=== PATIENT | male | born 1960 | race Caucasian/White ===

== ENCOUNTER → 2021-05-23 | Outpatient (CLI) | payer BC ==
[~2021-05-23] MED LIST: FLOMAX 0.40.4 MG/CAP PO; PROSCAR 5MG5 MG PO; PYRIDIUM 100MG100 MG PO
== END ==
LOC: COL.RAD 07:13
DX: N13.39 Other hydronephrosis (principal); N32.89 Other specified disorders of bladder

== ENCOUNTER 2021-07-06 05:20 | Day surgery (SDC) | payer BC ==
[2021-07-06] VITALS (11 sets, daily range): BP systolic 128–157; BP diastolic 63–89; PULSE 47–70; TEMP 98.1–98.7
[~2021-07-06] VITALS: Ht 182.9 cm; Wt 105.4 kg
[2021-07-06] MEDS ORDERED: PROSCAR 5MG5 MG PO (06:13)
[2021-07-06] MEDS ORDERED: FLOMAX 0.40.4 MG/CAP PO (06:13)
--- NOTE | 2021-07-06 10:23 | NUR ---
Patient resting in bed. His spinal is wearing off, still some numbness noted. He is doing well post op. Vitals stable. Ordering lunch, denies nausea. Patient [place]ano to DD. CBI to slow/mod rate. [place] tinged output. IVF. Scds BLE. Will monitor closely.
--- NOTE | 2021-07-06 19:09 | NUR ---
REPORT RECEIVED FROM NURSE BONDS. PATIENT RESTING IN BED ON NO APPARENT DISTRESS. POD TURP 3 WAY BLACK CATHETER WITH LIGHT CAMBERRY COLOR URINE. PATIENT DENIES ANY DISCOMFORT AT THIS TIME. CALL LIGHT IN REACH. WILL CONTINUE TO MONTIOR.
--- NOTE | 2021-07-06 20:17 | NUR ---
Patient resting in bed. Cbi to slow drip. He was hand irrigated x1 after he was up to the bathroom & strained to have a BM. Advised against this. Urine now flowing freely with a very light pink/peach. He has tolerated meals. Tylenol for bladder discomfort. Vital stable on room air. Scds ble. Bedside report to shira
[2021-07-07 03:34] VITALS: BP 137/75; PULSE 60; TEMP 98.3
--- NOTE | 2021-07-07 07:39 | NUR ---
Patient resting in bed. Up to the bathroom this am for a BM. Reports feeling better after getting up and moving. Breakfast ordered, denies nausea. Dixon to DD, CBi clamped. Patient hopeful for discharge home today. Will monitor.
[2021-07-07 07:48] VITALS: BP 135/80; PULSE 66; TEMP 97.9
--- NOTE | 2021-07-07 09:47 | NUR ---
Patient did well with breakfast, resting in bed. Denies needs at this this time, Cbi remains clamped
[2021-07-07] MEDS ORDERED: PYRIDIUM 100MG100 MG PO (11:20)
[2021-07-07 12:00] VITALS: BP 152/82; PULSE 88; TEMP 98.3
--- NOTE | 2021-07-07 14:13 | NUR ---
rounded late this am. Orders obtained. Dixon primed & pulled & 6 bottle routine started. Patient tolerated well. Patient has voided blood tinged urine x3. Clot noted in first void. PO intake encouraged. Azo for discomfort. Will monitor
--- NOTE | 2021-07-07 15:30 | NUR ---
Patient completed 6 bottle routine. He has done well. Azo helped relieve symptoms. Urine clearing nicely. pink/orange tinged. Brief provided for leaking. Int DC. We reviewed all discharge paperwork including activity & diet restrictions. Patient ambulated out with all belongings his taking him home. Patient already has follow out appt. scheduled. He denies questions or concerns, thankful to be going home.
== END 2021-07-07 15:35 | disposition home or self-care (01) ==
LOC: SDCO 05:20 → SURG 09:01 → SDCO 07-07 15:35
DX: N40.1 Benign prostatic hyperplasia with lower urinary tract symptoms (principal); I12.0 Hypertensive chronic kidney disease with stage 5 chronic kidney disease or end stage renal disease; N18.30 Chronic kidney disease, stage 3 unspecified; E78.5 Hyperlipidemia, unspecified; Z79.899 Other long term (current) drug therapy; R35.0 Frequency of micturition; N13.39 Other hydronephrosis; G47.33 Obstructive sleep apnea (adult) (pediatric)
CPT/HCPCS: OP; J0690; J2250; J2704; J7120